=== PATIENT | female | born 1940 | race Caucasian/White ===

== ENCOUNTER 2018-03-21 15:17 | Oncology outpatient (ONC) | payer OTHER, SELFPAY ==
--- NOTE | 2018-03-21 15:43 | ONC.PN ---
PN -Subjective Interval history: Chief Complaint right breast cancer History of present illness The patient underwent a right lumpectomy and sentinel lymph node biopsy on 06/30/2013. This was grade 1 disease. The primary tumor was 2.8 cm in length. She was node-negative, but there was evidence of perineural invasion. The patient was staged as T2 N0. The ER and SD receptors were both strongly positive. The HER2/lori protein was under-expressed. She had a low Ki-67 score. The patient went on to receive 33 fractions of postop radiation therapy followed by the initiation of letrozole in November 2013. Clinically patient has been doing well without any new complaints. He denies any new headache double vision or blurred vision. No shortness of breath no chest pain. No abdominal pain. No diarrhea or constipation. - Additional ROS All systems PM: reviewed and no additional remarkable complaints except as stated Home Medications and Allergies Home Medications Medication Instructions Recorded Confirmed Type atenolol 100 mg PO BID #180 tab 06/05/16 03/21/18 Rx lisinopril 20 mg PO Q EVENING #90 tab 06/05/16 03/21/18 Rx lisinopril-hydrochlorothiazide 1 tab PO SEE INSTRUCTIONS #90 tab 06/05/16 03/21/18 Rx metformin 850 mg PO BIDCC #180 tab 06/05/16 03/21/18 Rx metoprolol succinate 50 mg PO BID #0 04/11/17 03/21/18 History ascorbic acid (vitamin C) [Vitamin 500 mg PO DAILY 03/21/18 03/21/18 History C] letrozole 2.5 mg PO DAILY #90 tab 03/21/18 Rx Exam Vital signs: Temp 98.5 F 03/21/18 15:54 Pulse Ox 100 03/21/18 15:54 Narrative: Constitutional: Well developed, well nourished, not in any acute respiratory distress, well groomed, pleasant and cooperative. HEENT: Normocephalic atraumatic. Extraocular muscle movement intact. Pupils are round, equal and reactive to light and accommodations. Anicteric sclera. No hearing difficulty; Oral mucus membrane moist and without ulcers. Neck: Supple, symmetrical, and tracheal midline; No palpable thyromegaly and no palpable lymph nodes. Respiratory: No use of accessory muscles. Clear to auscultation, and no wheezes or rales or rubs. Cardiovascular: Regular rate and rhythm, S1 and S2 normal, no murmurs gallops or rubs. No JVD. No pitting edema of lower extremities. Abdomen: Soft, nontender, non-distended, bowel sounds normal, no palpable organomegaly, no hernia, no palpable masses. Lower extremities: No palpable pedal edema. Lymphatic: no palpable lymph nodes in the neck, axillae, or groins. Musculoskeletal: normal gait and station, no clubbing, no cyanosis, no pitting edema. Skin: no rashes, no ulcers, no petechiae Neurological: Awake and alert and oriented x3. CN II-XII grossly intact. No focal motor or sensory deficit. Psychiatric: Good judgment, good insight, normal affect, normal thought process, cooperative, no depression, no anxiety. Breast exams: Right breast status post lumpectomy surgical wound noted. No palpable lymph nodes in the right axilla. Left breast: No nipple retraction, no palpable masses, no palpable lymph nodes in the left axilla. All physical examinations were chaperoned throughout. Results - Imaging Additional studies: Procedures Excision of axillary lymph node (06/30/13) Resection of quadrant of breast (06/30/13) Subtotal mastectomy (07/14/13) Assessment and Plan (1) Cancer of right breast, stage 1, estrogen receptor positive Overall patient has tolerated very well the aromatase inhibitor letrozole. Patient does not have any arthritic pain or new onset pain. Clinically I do not think there is any evidence to suggest disease recurrence or metastasis. I will continue current treatment with letrozole 2.5 mg once a day. We will have the patient come back in September for mammogram and then follow up with me with labs including CBC CMP.
--- NOTE | 2018-03-21 15:51 | P.PNONC_ITS ---
PN -Subjective Interval history: Chief Complaint right breast cancer History of present illness The patient underwent a right lumpectomy and sentinel lymph node biopsy on 06/30. This was grade 1 disease. The primary tumor was 2.8 cm in length. She was node-negative, but there was evidence of perineural invasion. The patient was staged as T2 N0. The ER and ND receptors were both strongly positive. The HER2/lori protein was under-expressed. She had a low Ki-67 score. The patient went on to receive 33 fractions of postop radiation therapy followed by the initiation of letrozole in November 2013. Clinically patient has been doing well without any new complaints. He denies any new headache double vision or blurred vision. No shortness of breath no chest pain. No abdominal pain. No diarrhea or constipation. - Additional ROS All systems PM: reviewed and no additional remarkable complaints except as stated Home Medications and Allergies Home Medications Medication Instructions Recorded Confirmed Type atenolol 100 mg PO BID #180 tab 06/05/16 03/21/18 Rx lisinopril 20 mg PO Q EVENING #90 tab 06/05/16 03/21/18 Rx lisinopril-hydrochlorothiazide 1 tab PO SEE INSTRUCTIONS #90 tab 06/05/16 Rx metformin 850 mg PO BIDCC #180 tab 06/05/16 03/21/18 Rx metoprolol succinate 50 mg PO BID #0 04/11/17 03/21/18 History ascorbic acid (vitamin C) [Vitamin 500 mg PO DAILY 03/21/18 03/21/18 History C] letrozole 2.5 mg PO DAILY #90 tab 03/21/18 Rx Exam Vital signs: 3 Temp 98.5 F 03/21/18 15:54 Pulse Ox 100 03/21/18 15:54 Narrative: Constitutional: Well developed, well nourished, not in any acute respiratory distress, well groomed, pleasant and cooperative. HEENT: Normocephalic atraumatic. Extraocular muscle movement intact. Pupils are round, equal and reactive to light and accommodations. Anicteric sclera. No hearing difficulty; Oral mucus membrane moist and without ulcers. Neck: Supple, symmetrical, and tracheal midline; No palpable thyromegaly and no palpable lymph nodes. Respiratory: No use of accessory muscles. Clear to auscultation, and no wheezes or rales or rubs. Cardiovascular: Regular rate and rhythm, S1 and S2 normal, no murmurs gallops or rubs. No JVD. No pitting edema of lower extremities. Abdomen: Soft, nontender, non-distended, bowel sounds normal, no palpable organomegaly, no hernia, no palpable masses. Lower extremities: No palpable pedal edema. Lymphatic: no palpable lymph nodes in the neck, axillae, or groins. Musculoskeletal: normal gait and station, no clubbing, no cyanosis, no pitting edema. Skin: no rashes, no ulcers, no petechiae Neurological: Awake and alert and oriented x3. CN II-XII grossly intact. No focal motor or sensory deficit. Psychiatric: Good judgment, good insight, normal affect, normal thought process , cooperative, no depression, no anxiety. Breast exams: Right breast status post lumpectomy surgical wound noted. No palpable lymph nodes in the right axilla. Left breast: No nipple retraction, no palpable masses, no palpable lymph nodes in the left axilla. All physical examinations were chaperoned throughout. Results - Imaging Additional studies: Procedures Excision of axillary lymph node (06/30/13) Resection of quadrant of breast (06/30/13) Subtotal mastectomy (07/14/13) Assessment and Plan (1) Cancer of right breast, stage 1, estrogen receptor positive Overall patient has tolerated very well the aromatase inhibitor letrozole. Patient does not have any arthritic pain or new onset pain. Clinically I do not think there is any evidence to suggest disease recurrence or metastasis. I will continue current treatment with letrozole 2.5 mg once a day. We will have the patient come back in September for mammogram and then follow up with me with labs including CBC CMP.
[2018-03-21 15:54] VITALS: BP 170/89; PULSE 84; RESP 18; TEMP 36.9; O2SAT 100
== END 2018-03-22 12:00 ==
LOC: ONC 15:19
PROVIDERS: Family Provider Family Medicine; PCP Family Medicine; Visit Provider Internal Medicine Hematology & Oncology
DX: C50.911 Malignant neoplasm of unspecified site of right female breast (principal); Z17.0 Estrogen receptor positive status [ER+]; Z79.811 Long term (current) use of aromatase inhibitors
CPT/HCPCS: 99214

== ENCOUNTER → 2018-09-16 14:27 | Outpatient (CLI) | payer OTHER, SELFPAY ==
--- NOTE | 2018-09-16 | DI.MG.S_ITS ---
BILATERAL DIGITAL SCREENING MAMMOGRAM 3D/2D WITH CAD: 09/16/2018 CLINICAL: Routine screening. Personal history of breast cancer. Family history of breast cancer. Comparison is made to exams dated: 09/12/2017 mammogram, 08/30/2017 mammogram, and 06/27/2016 mammogram - [facility]. The tissue of both breasts is heterogeneously dense. This may lower the sensitivity of mammography. Current study was also evaluated with a Computer Aided Detection (CAD) system. There are a benign area of fat necrosis and post operative findings in the right breast. There also are benign calcifications in both breasts. No significant masses, calcifications, or other findings are seen in either breast. There has been no significant interval change. IMPRESSION: There is no mammographic evidence of malignancy. A 1 year screening mammogram is recommended. This exam was interpreted at Station ID: [id number]. NOTE: For mammograms, a report in lay terms will be sent to the patient. Approximately 15% of breast malignancies will not be visualized mammographically. In the management of a palpable breast mass, a negative mammogram must not discourage biopsy of a clinically suspicious lesion. Electronically Signed By: Familia moreno/lazarus:09/16/2018 18:02:10 copy to: KOBE ROSE letter sent: Normal Exam ACR BI-RADS Category 2: Benign Finding(s) 3342F
[2018-09-16 15:12] LABS: Add Manual Diff / Slide Review NO; Basophils Absolute Auto 100 /uL (0-100); Basophils Percent Auto 0.8 % (0-2); Eosinophils Absolute Auto 500 /uL (0-450); Hematocrit 41.3 % (36-46); Hemoglobin 13.9 g/dL (12.0-16.0); Lymphocytes Absolute Auto 2200 /uL (1100-4500); Lymphocytes Percent Auto 28.3 % (25-40); Mean Corpuscular HGB Conc 33.7 % (30-36); Mean Corpuscular Hemoglobin 31.5 PG (26-34); Mean Corpuscular Volume 93.5 fL (80-100); Monocytes Absolute Auto 800 /uL (0-900); Monocytes Percent Auto 10.3 % (3-14); Neutrophils Absolute Auto 4300 /uL (1500-7000); Neutrophils Percent Auto 54.6 % (50-75); Platelet Count 285 X10^3/uL (150-400); Red Blood Cell Count 4.41 X10^6/uL (4.0-5.2); Red Cell Distribution Width 13.7 % (11.6-14.8); White Blood Cell Count 7.9 X10^3/uL (4.5-11.0)
[2018-09-16 15:37] LABS: Alanine Aminotransferase 81 IU/L (9-52); Albumin 4.9 g/dL (3.5-5.0); Albumin Globulin Ratio 1.8 (1.0-2.8); Alkaline Phosphatase 69 U/L (38-126); Aspartate Aminotransferase 41 IU/L (14-36); BUN Creatinine Ratio 30.9 (6-22); Bilirubin Total 0.5 mg/dL (0.2-1.3); Blood Urea Nitrogen 34 mg/dL (7-17); Calcium 10.5 mg/dL (8.4-10.2); Carbon Dioxide 25 mmol/L (22-32); Chloride 100 mmol/L (98-107); Estimated Glomerular Filt Rate 48.2 mL/min (>60); Globulin 2.7 g/dL (1.7-4.1); Glucose 104 mg/dL (80-110); HEMOLYSIS < 15 (0-50); Potassium 4.7 mmol/L (3.4-5.1); Sodium 140 mmol/L (137-145); Total Protein 7.6 g/dL (6.3-8.2)
== END ==
PROVIDERS: Family Provider Family Medicine; PCP Family Medicine; Visit Provider Internal Medicine Hematology & Oncology
DX: Z12.31 Encounter for screening mammogram for malignant neoplasm of breast (principal); Z80.3 Family history of malignant neoplasm of breast; Z85.3 Personal history of malignant neoplasm of breast
CPT/HCPCS: 36415; 77063; 77067; 80053; 85025

== ENCOUNTER → 2018-10-02 15:39 | Oncology outpatient (ONC) | payer OTHER, SELFPAY ==
--- NOTE | 2018-10-02 16:51 | P.PNONC_ITS ---
PN -Subjective Interval history: Ms. Zayas is a 78 year old female with diagnosis of ER/GA pos, Her2 negative, node negative, grade 1, right breast cancer status post right lumpectomy and sentinel lymph node biopsy on 06/30/2013. The primary tumor was 2.8 cm in length. There was evidence of perineural invasion. Staged T2 N0. The patient went on to receive 33 fractions of postop radiation therapy. Then, she was started on letrozole in November 2013. She presents here today for scheduled follow-up visit. Patient has tolerated the letrozole extremely well. She was wondering if it is time to stop the letrozole. Patient clinically reported no headache, no double vision or blurred vision, no shortness of breath, no chest pain, no nausea, no vomiting, no diarrhea or constipation. Patient underwent mammogram on 09/16/2018 and showed no mammographic evidence of malignancy. One year follow-up is recommended. - Additional ROS All systems PM: reviewed and no additional remarkable complaints except as stated Home Medications and Allergies Home Medications Medication Instructions Recorded Confirmed Type atenolol 100 mg PO BID #180 tab 06/05/16 10/02/18 Rx lisinopril 20 mg PO Q EVENING #90 tab 06/05/16 10/02/18 Rx lisinopril-hydrochlorothiazide 1 tab PO SEE INSTRUCTIONS #90 tab 06/05/16 10/02/18 Rx metformin 850 mg PO BIDCC #180 tab 06/05/16 10/02/18 Rx metoprolol succinate 50 mg PO BID #0 04/11/17 10/02/18 History ascorbic acid (vitamin C) [Vitamin 500 mg PO DAILY 03/21/18 10/02/18 History C] letrozole 2.5 mg PO DAILY #90 tab 03/21/18 10/02/18 Rx Allergies Allergy/AdvReac Type Severity Reaction Status Date / Time No Known Drug Allergies Allergy Verified 10/02/18 17:12 Exam Vital signs: Last Vital Signs Temp 98.6 F 10/02/18 16:53 Pulse 89 10/02/18 16:53 Resp 16 10/02/18 16:53 BP 155/82 H 10/02/18 16:53 Pulse Ox 99 10/02/18 16:53 ECOG 1 Narrative: Gen: WDWN, NAD, obese, pleasant and cooperative. HEENT: NCAT, EOMI, PERRLA, anicteric sclera. Neck: Supple, No palpable thyromegaly or lymphadenopathy. Respiratory: CTAB, no wheezes audible. No JVD Cardiovascular: RRR, S1 and S2 normal, no M/G/R. Abdomen: Soft, NTND, BS normal, no palpable organomegaly Extremities: No LE pitting edema. Lymphatic: no palpable lymph nodes in the neck, axillae Neurological: AOx3, CN II-XII grossly intact. No focal motor or sensory deficit. Psychiatric: Good judgment and insight; normal affect; normal thought process; cooperative, no depression, no anxiety. Breast Exam: deferred. She just had mammogram. Results - Labs Labs from 09/16/2018: WBC 7.9, hemoglobin 13.9, hematocrit 41.3%, platelets 285. Sodium 140, potassium 4.7, chloride 100, carbon dioxide 25, BUN 34, creatinine 1.10, glucose 104, calcium 10.5, total bilirubin 0.5, AST 41, ALT 81 - Imaging Additional studies: Procedures Excision of axillary lymph node (06/30/13) Resection of quadrant of breast (06/30/13) Subtotal mastectomy (07/14/13) Assessment and Plan (1) Cancer of right breast, stage 1, estrogen receptor positive Ms. Zayas is a 78 year old female with diagnosis of ER/GA pos, Her2 negative, node negative, grade 1, right breast cancer status post right lumpectomy and sentinel lymph node biopsy on 06/30/2013. The primary tumor was 2.8 cm in length. There was evidence of perineural invasion. Staged T2 N0. The patient went on to receive 33 fractions of postop radiation therapy. Then, she was started on letrozole in November 2013. She presents here today for scheduled follow- up visit. I reviewed the mammographic report with the patient. No evidence of malignancy. Clinically patient does not have any new signs or symptoms. I talked with her that I agree that she can stop the letrozole by the end of October to complete a total of 5 years of treatment. Plan: RTC in one year, mammogram, CBC, CMP Continue follow-up with her primary care provider.
[2018-10-02 16:53] VITALS: BP 155/82; PULSE 89; RESP 16; TEMP 37; O2SAT 99
== END ==
LOC: ONC 15:39
PROVIDERS: Family Provider Family Medicine; PCP Family Medicine; Visit Provider Internal Medicine Hematology & Oncology
DX: C50.911 Malignant neoplasm of unspecified site of right female breast (principal); Z17.0 Estrogen receptor positive status [ER+]; Z79.811 Long term (current) use of aromatase inhibitors
CPT/HCPCS: 99214

== ENCOUNTER → 2019-07-03 14:25 | Outpatient (CLI) | payer MEDICARE, SELFPAY ==
[2019-07-03 15:23] LABS: Add Manual Diff / Slide Review NO; Basophils Absolute Auto 100 /uL (0-100); Basophils Percent Auto 1.2 % (0-2); Eosinophils Absolute Auto 400 /uL (0-450); Eosinophils Percent Auto 5.6 % (2-4); Hematocrit 38.9 % (36-46); Hemoglobin 13.4 g/dL (12.0-16.0); Lymphocytes Absolute Auto 2400 /uL (1100-4500); Mean Corpuscular HGB Conc 34.3 % (30-36); Mean Corpuscular Hemoglobin 32.4 PG (26-34); Mean Corpuscular Volume 94.3 fL (80-100); Monocytes Absolute Auto 1000 /uL (0-900); Monocytes Percent Auto 12.6 % (3-14); Neutrophils Absolute Auto 3800 /uL (1500-7000); Neutrophils Percent Auto 49.6 % (50-75); Platelet Count 268 X10^3/uL (150-400); Red Blood Cell Count 4.13 X10^6/uL (4.0-5.2); Red Cell Distribution Width 13.3 % (11.6-14.8); White Blood Cell Count 7.7 X10^3/uL (4.5-11.0)
[2019-07-03 15:35] LABS: Alanine Aminotransferase 99 IU/L (<35); Albumin 4.6 g/dL (3.5-5.0); Albumin Globulin Ratio 1.4 (1.0-2.8); Alkaline Phosphatase 65 U/L (38-126); Aspartate Aminotransferase 60 IU/L (14-36); BUN Creatinine Ratio 23.3 (6-22); Bilirubin Total 0.8 mg/dL (0.2-1.3); Blood Urea Nitrogen 21 mg/dL (7-17); Calcium 10.1 mg/dL (8.4-10.2); Carbon Dioxide 24 mmol/L (22-32); Chloride 91 mmol/L (98-107); Cholesterol 255 mg/dL (140-199); Estimated Glomerular Filt Rate > 60.0 mL/min (>60); Globulin 3.2 g/dL (1.7-4.1); Glucose 101 mg/dL (80-110); HDL Cholesterol 44 mg/dL (40-60); HEMOLYSIS 21 (0-50); LDL Cholesterol Calculated 155 mg/dL (<100); Potassium 4.7 mmol/L (3.4-5.1); Sodium 130 mmol/L (137-145); Total Protein 7.8 g/dL (6.3-8.2); Triglycerides 282 mg/dL (35-150)
[2019-07-03 15:39] LABS: High Sensitivity CRP - Cardiac 3.4 mg/L (1.0-3.0)
[2019-07-03 15:48] LABS: Erythrocyte Sedimentation Rate 15 MM/HR (0-20)
[2019-07-03 16:11] LABS: HEMOLYSIS < 15 (0-50); Iron 116 ug/dL (37-170)
[2019-07-03 16:22] LABS: Percent Iron Saturation 30 % (15-50); Total Iron Binding Capacity 381 ug/dL (265-497); Transferrin 326 mg/dL (206-381)
[2019-07-03 16:40] LABS: Folate > 20.0 ng/mL (2.76-20.0); Vitamin B12 203 pg/mL (239-931)
[2019-07-03 16:44] LABS: Thyroid Stimulating Hormone 1.34 uIU/mL (0.47-4.68)
== END ==
PROVIDERS: Family Provider Family Medicine; PCP Family Medicine; Visit Provider Family Medicine
DX: I10 Essential (primary) hypertension (principal); E11.69 Type 2 diabetes mellitus with other specified complication; E78.2 Mixed hyperlipidemia
CPT/HCPCS: 36415; 80053; 80061; 82607; 82746; 83540; 83550; 84443; 85025; 85651; 86140

== ENCOUNTER → 2022-08-15 12:11 | Outpatient (CLI) | payer MEDICARE, SELFPAY ==
[2022-08-15 19:09] LABS: Add Manual Diff / Slide Review NO; Basophils Absolute Auto 0 /uL (0-100); Basophils Percent Auto 0.4 % (0-2); Eosinophils Absolute Auto 300 /uL (0-450); Eosinophils Percent Auto 3.5 % (2-4); Hematocrit 36.7 % (36-46); Hemoglobin 12.6 g/dL (12.0-16.0); Lymphocytes Absolute Auto 1800 /uL (1100-4500); Lymphocytes Percent Auto 21.5 % (25-40); Mean Corpuscular HGB Conc 34.4 % (30-36); Mean Corpuscular Hemoglobin 30.8 PG (26-34); Mean Corpuscular Volume 89.6 fL (80-100); Monocytes Absolute Auto 700 /uL (0-900); Monocytes Percent Auto 8.7 % (3-14); Neutrophils Absolute Auto 5600 /uL (1500-7000); Neutrophils Percent Auto 65.9 % (50-75); Platelet Count 315 X10^3/uL (150-400); Red Blood Cell Count 4.09 X10^6/uL (4.0-5.2); Red Cell Distribution Width 14.6 % (11.6-14.8); White Blood Cell Count 8.5 X10^3/uL (4.5-11.0)
[2022-08-15 19:29] LABS: Hemoglobin A1C% w Est Avg Glu 5.7 % (4.0-6.0)
[2022-08-15 19:39] LABS: Alanine Aminotransferase 29 IU/L (<35); Albumin 3.9 g/dL (3.5-5.0); Albumin Globulin Ratio 1.3 (1.0-2.8); Alkaline Phosphatase 83 U/L (38-126); Aspartate Aminotransferase 25 IU/L (14-36); BUN Creatinine Ratio 27.9 (6-22); Bilirubin Total 0.5 mg/dL (0.2-1.3); Blood Urea Nitrogen 24 mg/dL (7-17); Calcium 9.4 mg/dL (8.4-10.2); Carbon Dioxide 21 mmol/L (22-32); Chloride 99 mmol/L (98-107); Cholesterol 166 mg/dL (140-199); Estimated Glomerular Filt Rate > 60 mL/min (>60); Glucose 90 mg/dL (80-110); HDL Cholesterol 43 mg/dL (40-60); HEMOLYSIS < 15 (0-50); LDL Cholesterol Calculated 87 mg/dL (<100); Potassium 4.8 mmol/L (3.4-5.1); Sodium 131 mmol/L (137-145); Total Protein 6.9 g/dL (6.3-8.2); Triglycerides 182 mg/dL (35-150)
[2022-08-15 20:36] LABS: TSH w/ Reflex to FT4 0.65 uIU/mL (0.47-4.68)
== END ==
PROVIDERS: Family Provider Family Medicine; PCP Physician Assistant; Visit Provider Family Medicine
DX: E11.9 Type 2 diabetes mellitus without complications (principal); I10 Essential (primary) hypertension; Z79.899 Other long term (current) drug therapy
CPT/HCPCS: 80053; 80061; 83036; 84443; 85025

== ENCOUNTER → 2023-07-11 12:50 | Outpatient (CLI) | payer MEDICARE, SELFPAY ==
[2023-07-11 20:10] LABS: Add Manual Diff / Slide Review NO; Basophils Absolute Auto 100 /uL (0-100); Basophils Percent Auto 1.1 % (0-2); Eosinophils Absolute Auto 500 /uL (0-450); Eosinophils Percent Auto 4.4 % (2-4); Hematocrit 39.7 % (36-46); Hemoglobin 13.2 g/dL (12.0-16.0); Lymphocytes Absolute Auto 2100 /uL (1100-4500); Mean Corpuscular HGB Conc 33.4 % (30-36); Mean Corpuscular Hemoglobin 30.8 PG (26-34); Mean Corpuscular Volume 92.4 fL (80-100); Monocytes Absolute Auto 900 /uL (0-900); Monocytes Percent Auto 8.3 % (3-14); Neutrophils Absolute Auto 6900 /uL (1500-7000); Neutrophils Percent Auto 66.2 % (50-75); Platelet Count 304 X10^3/uL (150-400); Red Blood Cell Count 4.29 X10^6/uL (4.0-5.2); Red Cell Distribution Width 14.4 % (11.6-14.8); White Blood Cell Count 10.5 X10^3/uL (4.5-11.0)
[2023-07-11 20:28] LABS: Alanine Aminotransferase 20 IU/L (<35); Albumin 4.3 g/dL (3.5-5.0); Albumin Globulin Ratio 1.3 (1.0-2.8); Alkaline Phosphatase 58 U/L (38-126); Aspartate Aminotransferase 27 IU/L (14-36); BUN Creatinine Ratio 38.6 (6-22); Bilirubin Total 0.7 mg/dL (0.2-1.3); Blood Urea Nitrogen 34 mg/dL (7-17); Calcium 9.9 mg/dL (8.4-10.2); Carbon Dioxide 25 mmol/L (22-32); Chloride 101 mmol/L (98-107); Cholesterol 201 mg/dL (140-199); Estimated Glomerular Filt Rate > 60 mL/min (>60); Globulin 3.2 g/dL (1.7-4.1); Glucose 84 mg/dL (80-110); HDL Cholesterol 48 mg/dL (40-60); HEMOLYSIS 36 (0-50); LDL Cholesterol Calculated 108 mg/dL (<100); Potassium 4.5 mmol/L (3.4-5.1); Sodium 138 mmol/L (137-145); Total Protein 7.5 g/dL (6.3-8.2); Triglycerides 226 mg/dL (35-150)
[2023-07-11 20:37] LABS: Erythrocyte Sedimentation Rate 9 MM/HR (0-20)
[2023-07-11 21:11] LABS: Hemoglobin A1C% w Est Avg Glu 5.3 % (4.0-6.0)
[2023-07-11 21:21] LABS: Vitamin B12 419 pg/mL (239-931)
[2023-07-11 21:24] LABS: Hepatitis B Surface Antigen NEGATIVE s/c (NEGATIVE)
[2023-07-11 21:26] LABS: HIV 1 & 2 Ab/Ag 4th Gen Combo NEGATIVE (NEGATIVE); Hep C Virus Ab w/Reflex Quant NEGATIVE s/c (NEGATIVE)
== END ==
PROVIDERS: Family Provider Family Medicine; PCP Physician Assistant; Visit Provider Family Medicine
DX: I10 Essential (primary) hypertension (principal); E78.1 Pure hyperglyceridemia; E78.2 Mixed hyperlipidemia; E11.9 Type 2 diabetes mellitus without complications; R79.89 Other specified abnormal findings of blood chemistry; M19.90 Unspecified osteoarthritis, unspecified site; E53.8 Deficiency of other specified B group vitamins
CPT/HCPCS: 80053; 80061; 82607; 83036; 85025; 85651; 86803; 87340; 87389

== ENCOUNTER → 2023-07-30 14:44 | Outpatient (CLI) | payer MEDICARE, SELFPAY ==
[2023-07-30 19:42] LABS: Creatinine Urine Random 51.4 mg/dL
[2023-07-30 19:47] LABS: Microalbumin Urine Random < 0.6 mg/dL (0-1.6)
== END ==
PROVIDERS: Family Provider Family Medicine; PCP Physician Assistant; Visit Provider Family Medicine
DX: E11.9 Type 2 diabetes mellitus without complications (principal); E87.1 Hypo-osmolality and hyponatremia; I10 Essential (primary) hypertension
CPT/HCPCS: 82043; 82570

== ENCOUNTER → 2024-07-21 11:04 | Outpatient (CLI) | payer MEDICARE, OTHER, SELFPAY ==
[2024-07-21 18:42] LABS: Add Manual Diff / Slide Review NO; Basophils Absolute Auto 100 /uL (0-100); Basophils Percent Auto 0.8 % (0-2); Eosinophils Absolute Auto 400 /uL (0-450); Eosinophils Percent Auto 4.6 % (2-4); Hematocrit 38.9 % (36-46); Lymphocytes Absolute Auto 2100 /uL (1100-4500); Lymphocytes Percent Auto 24.4 % (25-40); Mean Corpuscular HGB Conc 33.3 % (30-36); Mean Corpuscular Hemoglobin 30.8 PG (26-34); Mean Corpuscular Volume 92.4 fL (80-100); Monocytes Absolute Auto 800 /uL (0-900); Monocytes Percent Auto 9.8 % (3-14); Neutrophils Absolute Auto 5200 /uL (1500-7000); Neutrophils Percent Auto 60.4 % (50-75); Platelet Count 315 X10^3/uL (150-400); Red Blood Cell Count 4.21 X10^6/uL (4.0-5.2); Red Cell Distribution Width 14.3 % (11.6-14.8); White Blood Cell Count 8.6 X10^3/uL (4.5-11.0)
[2024-07-21 19:06] LABS: Hemoglobin A1C% w Est Avg Glu 5.2 % (4.0-6.0)
[2024-07-21 19:11] LABS: Cholesterol 243 mg/dL (140-199); HDL Cholesterol 45 mg/dL (40-60); LDL Cholesterol Calculated 142 mg/dL (<100); Triglycerides 281 mg/dL (35-150)
[2024-07-21 19:12] LABS: Alanine Aminotransferase 24 IU/L (<35); Albumin 4.4 g/dL (3.5-5.0); Albumin Globulin Ratio 1.6 (1.0-2.8); Alkaline Phosphatase 60 U/L (38-126); Aspartate Aminotransferase 25 IU/L (14-36); BUN Creatinine Ratio 27.2 (6-22); Bilirubin Total 0.7 mg/dL (0.2-1.3); Blood Urea Nitrogen 25 mg/dL (7-17); Calcium 9.8 mg/dL (8.4-10.2); Carbon Dioxide 23 mmol/L (22-32); Chloride 102 mmol/L (98-107); Estimated Glomerular Filt Rate > 60 mL/min (>60); Globulin 2.7 g/dL (1.7-4.1); Glucose 95 mg/dL (80-110); HEMOLYSIS < 15 (0-50); Potassium 4.7 mmol/L (3.4-5.1); Sodium 133 mmol/L (137-145); Total Protein 7.1 g/dL (6.3-8.2)
[2024-07-21 19:25] LABS: Creatinine Urine Random 23.99 mg/dL
[2024-07-21 19:30] LABS: Microalbumin Urine Random 0.7 mg/dL (0-1.6)
[2024-07-21 19:46] LABS: TSH w/ Reflex to FT4 1.22 uIU/mL (0.47-4.68)
== END ==
PROVIDERS: Family Medicine; Family Provider Family Medicine; PCP Physician Assistant; Visit Provider Physician Assistant Medical
DX: K59.00 Constipation, unspecified (principal); E11.9 Type 2 diabetes mellitus without complications; E78.2 Mixed hyperlipidemia; I10 Essential (primary) hypertension; E87.1 Hypo-osmolality and hyponatremia
CPT/HCPCS: 80053; 80061; 82043; 82570; 83036; 84443; 85025